=== PATIENT | female | born 1940 | race Caucasian/White ===

== ENCOUNTER 2018-12-16 12:30 | Outpatient (CLI) | payer MEDICARE, BC ==
--- NOTE | 2018-12-16 15:00 | CT ---
CT OF THE BILATERAL LOWER EXTREMITIES WITH CONTRAST: 12/16/18 HISTORY: Bilateral extremity swelling and pain for several months. Patient had a venous ablation recently. TECHNIQUE: Multiple contiguous axial images were obtained in a CT of the bilateral lower extremities with contra st. Coronal reformats were performed. FINDINGS: Patient is status post right hip arthroplasty which produces streak artifact limiting evaluation of t his region. The visualized intrapelvic structures are unremarkable. There is a small right knee effusion. No left knee effusion is seen. There are moderate sized Dolan's cyst posterior to both knees. Diffuse soft tissue swelling is seen in both legs, more prominent infe riorly. No focal fluid collection is seen. No focal mass is present. Mild degenerative changes are seen in both knees. Moderate degenerative changes are seen in the left hip. No significant atherosclerotic disease is seen in the visualized vessels of either leg. IMPRESSION: 1. No acute abnormality of either leg. 2. Bilateral Dolan's cysts. 3. 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 POS: [facility]
== END 2018-12-16 12:31 | disposition home or self-care (01) ==
LOC: BICCT 12:30
PROVIDERS: ATTEND Internal Medicine Cardiovascular Disease
DX: M79.661 Pain in right lower leg (principal); M79.662 Pain in left lower leg; M71.22 Synovial cyst of popliteal space [Baker], left knee; M71.21 Synovial cyst of popliteal space [Baker], right knee; M17.0 Bilateral primary osteoarthritis of knee; M16.12 Unilateral primary osteoarthritis, left hip
CPT/HCPCS: 82565